=== PATIENT | female | born 1975 | race Two or more races ===

== ENCOUNTER 2019-03-23 20:58 | Emergency (ER) | payer OTHER ==
[~2019-03-23] VITALS: Ht 160 cm; Wt 73.0 kg
[~2019-03-23 20:58] MED LIST: DICLOFENAC SODI50 MG PO; INTESTINEX1 CA1; INTESTINEX1 CAP PO; LEVSIN/SL0.125 MG PO; MEDROL4 MG PO; NEURONTIN600 MG PO; SYNTHROID50 MCG PO; ZANTAC 7575 MG; ZANTAC150 MG PO
[2019-03-23] MEDS ORDERED: OMEPRAZOLE20 MG (21:34)
[2019-03-23] MEDS ORDERED: ZYRTEC10 M3 (21:35)
[2019-03-24] MEDS ORDERED: CIPRO500 MG PO (08:43)
[2019-03-24] MEDS ORDERED: FLAGYL500MG PO ×2 (08:43→08:44)
[2019-03-24] MEDS ORDERED: ULTRACET PO (08:43)
== END 2019-03-24 09:20 | disposition home or self-care (01) ==
LOC: ER 20:58
DX: K57.92 Diverticulitis of intestine, part unspecified, without perforation or abscess without bleeding (principal)

== ENCOUNTER 2021-01-03 19:04 | Emergency (ER) | payer OTHER ==
[~2021-01-03] VITALS: Ht 162.6 cm; Wt 79.4 kg
[~2021-01-03 19:04] MED LIST changes: +CIPRO500 MG PO; +FLAGYL500MG PO; +OMEPRAZOLE20 MG; +ULTRACET PO; +ZYRTEC10 M3
[2021-01-04] MEDS ORDERED: INTESTINEX680 M2 PO (12:07)
[2021-01-04] MEDS ORDERED: TESSALON PERLE100 M1 PO (12:07)
[2021-01-04] MEDS ORDERED: AMOX-CLAV 875-1 EAC1 PO (12:07)
[2021-01-04] MEDS ORDERED: TUSSI PRES-B L480 ML PO (12:07)
== END 2021-01-04 12:36 | disposition home or self-care (01) ==
LOC: ER 19:04
DX: J01.00 Acute maxillary sinusitis, unspecified (principal); R05 Cough